=== PATIENT | female | born 1990 | race Caucasian/White ===

== ENCOUNTER → 2024-05-15 15:34 | Outpatient (REF) | payer BC, SELFPAY | LOC: RCS 15:34 | PROVIDERS: ATTENDING PHYSICIAN Internal Medicine Cardiovascular Disease; FAMILY PHYSICIAN Family Medicine | DX: R00.2 Palpitations (principal); O14.93 Unspecified pre-eclampsia, third trimester | CPT/HCPCS: 93306 ==

== ENCOUNTER → 2024-11-26 15:36 | Outpatient (REF) | payer BC, SELFPAY | LOC: RAD 15:36 | PROVIDERS: ATTENDING PHYSICIAN Internal Medicine; FAMILY PHYSICIAN Family Medicine | DX: R10.9 Unspecified abdominal pain (principal) | CPT/HCPCS: 74177; Q9967 ==